=== PATIENT | female | born 1980 | race Two or more races ===

== ENCOUNTER 2019-02-26 21:45 | Emergency (ER) | payer SELFPAY ==
[~2019-02-26] VITALS: Ht 137.2 cm; Wt 58.2 kg
[2019-02-26 22:05] VITALS: Ht 137.2 cm; Wt 58.2 kg
[2019-02-26 22:26] LABS: BASOPHILS 0.4 % (0-2); EOSINOPHILS 2.9 % (0-7); LYMPHOCYTES 23.3 % (15-50); MCH 30.2 pg (26.0-34.0); MCHC 33.3 g/dL (31.0-37.0); MCV 90.5 fL (80.0-100.0); MEAN PLATELET VOLUME 9.7 fL (7.4-10.4); MONOCYTES 5.4 % (2-11); PLATELET COUNT 279 10x3/uL (130-400); RBC 3.98 10x6/uL (4.00-5.40); RDW 12.8 % (11.5-14.5); WBC 12.4 10x3/uL (4.8-10.8)
[2019-02-26 22:39] LABS: CALC OSMOLALITY 273 mosm/kg (275-300); CALCIUM 9.3 mg/dL (8.5-10.1); CARBON DIOXIDE 25.3 mmol/L (21.0-32.0); CHLORIDE - SERUM 104 mmol/L (98-107); CREATININE - SERUM 0.4 mg/dL (0.6-1.3); GLUCOSE 110 mg/dL (74-106); POTASSIUM - SERUM 3.9 mmol/L (3.5-5.1); SODIUM 138 mmol/L (136-145); UREA NITROGEN 5 mg/dL (7-18); eGFR NON AFRICAN AMERICAN > 90 mL/min (90-120)
[2019-02-26 23:03] LABS: ALBUMIN 3.2 g/dL (3.4-5.0); ALKALINE PHOSPHATASE 102 U/L (46-116); ALT (SGPT) 17 U/L (10-68); BILIRUBIN - TOTAL 0.16 mg/dL (0.2-1.3); HCG - QUANTITATIVE (MATERNAL) 15253 mIU/mL; PROTEIN - SERUM 7.7 g/dL (6.4-8.2)
[2019-02-26 23:27] LABS: COLOR TAN (YELLOW)
[2019-02-26 23:28] LABS: APPEARANCE CLEAR (CLEAR); BILIRUBIN NEGATIVE (NEGATIVE); GLUCOSE NEGATIVE (NEGATIVE); KETONE NEGATIVE (NEGATIVE); NITRITE NEGATIVE (NEGATIVE); PROTEIN TRACE mg/dL (NEGATIVE); SPECIFIC GRAVITY 1.015 (1.005-1.020); UROBILINOGEN NORMAL (NORMAL); WHITE CELLS - URINE RARE /hpf (NEGATIVE)
[2019-02-27 00:45] VITALS: BP 138/75
== END 2019-02-27 00:45 | disposition home or self-care (01) ==
LOC: D.ER 21:45
PROVIDERS: Emergency Medicine
DX: O46.92 Antepartum hemorrhage, unspecified, second trimester (principal); Z3A.18 18 weeks gestation of pregnancy

== ENCOUNTER 2019-07-15 09:26 | Inpatient (IN) | payer MEDICAID ==
[2019-07-15] VITALS (12 sets, daily range): BP systolic 98–144; BP diastolic 54–80; Ht 137.2 cm; Wt 70.8 kg
[~2019-07-15] VITALS: Ht 137.2 cm; Wt 70.8 kg
--- NOTE | ~2019-07-15 | OP ---
PATIENT NAME: LUIZ HOPE MEDICAL RECORD: [id number] :82 LOCATION:[id number] ADMISSION DATE:07/15/19 SURGEON: ERIKA THORNE DO DATE OF OPERATION: 07/15/2019 PREOPERATIVE DIAGNOSES: Gestational hypertension, previous section. POSTOPERATIVE DIAGNOSIS: Gestational hypertension, previous section. PRIMARY SURGEON: Erika Thorne DO ANESTHESIA: Spinal. PROCEDURE: Repeat low transverse section via Pfannenstiel incision. FINDINGS: Female infant, weight 7 pounds, delivered at 13:52. Apgars 9 and 9. Normal appearing uterus, bilateral fallopian tubes and bilateral ovaries. SPECIMENS: Placenta and cord. ESTIMATED BLOOD LOSS: 800 mL. IV FLUIDS: 1800 cc. URINE OUTPUT: 1000 cc clear urine. COMPLICATIONS: None. CONDITION: Stable. PROCEDURE: The risks, benefits, alternatives and indications of the procedure were discussed with the patient. She voiced understanding of the procedure and signed the consent. She was taken to the OR where spinal anesthesia was administered and found to be adequate. She was placed in the dorsal supine position with a leftward tilt. She was prepped and draped in normal sterile fashion. A Pfannenstiel skin incision was made with a scalpel and carried down to the underlying layer of the fascia with the Bovie. The fascia was incised at the midline and extended laterally. The inferior aspect of the fascial incision was grasped with Peewee clamps and the rectus muscle was dissected off sharply. Attention was then turned to the superior aspect of the fascial incision and the rectus muscle was dissected off in a similar fashion. The rectus muscle was in the midline down to the level of peritoneum. The peritoneum was identified and noted to be free of adherent bowel and entered bluntly. The peritoneum was further with gentle traction. The bladder blade was inserted and a bladder flap was created with Metzenbaum scissors. The uterus was incised in a transverse fashion lower uterine segment with the scalpel and the incision was extended with cephalad caudad traction. The infant's head was brought to the incision and nuchal cord times 1 was noted and nuchal cord was reduced over the head prior to delivery of the body. The delivered without difficulty. Mouth and nose were suctioned. Cord was clamped and cut and the infant was handed off to awaiting pediatric personnel. The placenta was manually removed. The uterus was exteriorized and a moist lap was used to assure complete removal of placental membranes. The hysterotomy was closed with 0 Vicryl in a running locked fashion. There were several areas of bleeding noted, which were ligated with 2-0 Monocryl and [id number] stitches. OPERATIVE REPORT [id number] LUIZ HOPE Uterus, tubes, and ovaries were otherwise noted to be normal. The posterior cul-de-sac was irrigated with warm sterile water and all blood clots and fluid were removed from the posterior cul-de-sac. Uterus, tubes, and ovaries were returned back to the abdominal cavity and a moist laparotomy sponge was used to assure complete removal of blood clots and fluid from the abdominal cavity. The hysterotomy was reinspected and noted to be hemostatic. The rectus muscle was closed with 2-0 Monocryl in a running fashion with good hemostasis. The fascial incision was closed with 0 Vicryl in a running fashion with good hemostasis. The subcutaneous fat was closed with 2-0 plain in a running fashion with good hemostasis and the skin was closed in a subcuticular fashion with 3-0 Monocryl and Dermabond, covering. All needle, lap, sponge, and instrument counts were correct times 2. The patient tolerated the procedure well and she was taken to the recovery room in stable condition. TRANSINT:[id number] Voice Confirmation ID: [id number] DOCUMENT ID: [id number] ERIKA THORNE DO CC: [id number] DICTATION DATE: 07/15/191450 RADIATION ONCOLOGY THERAPIST: 07/15/19 2316 ADM IN [place] [address] [place] [address]
[2019-07-15 10:24] LABS: CALC OSMOLALITY 267 mosm/kg (275-300); CALCIUM 8.7 mg/dL (8.5-10.1); CARBON DIOXIDE 21.7 mmol/L (21.0-32.0); CHLORIDE - SERUM 103 mmol/L (98-107); CREATININE - SERUM 0.5 mg/dL (0.6-1.3); GLUCOSE 100 mg/dL (74-106); POTASSIUM - SERUM 4.2 mmol/L (3.5-5.1); SODIUM 135 mmol/L (136-145); UREA NITROGEN 8 mg/dL (7-18); eGFR NON AFRICAN AMERICAN > 90 mL/min (90-120)
[2019-07-15 10:38] LABS: ALBUMIN 2.4 g/dL (3.4-5.0); ALKALINE PHOSPHATASE 212 U/L (30-120); ALT (SGPT) 23 U/L (10-68); BASOPHILS 0.4 % (0-2); BILIRUBIN - DIRECT 0.05 mg/dL (0.00-0.30); BILIRUBIN - INDIRECT 0.19 mg/dL (0.00-1.00); BILIRUBIN - TOTAL 0.24 mg/dL (0.2-1.3); EOSINOPHILS 1.2 % (0-7); HEMATOCRIT 34.6 % (36.0-48.0); HEMOGLOBIN 11.6 g/dL (12-16); IMMATURE GRANULOCYTES 5.9 % (0-5); MCH 29.5 pg (26.0-34.0); MCHC 33.5 g/dL (31.0-37.0); MEAN PLATELET VOLUME 10.3 fL (7.4-10.4); NEUTROPHILS 71.5 % (40-80); PLATELET COUNT 260 10x3/uL (130-400); PROTEIN - SERUM 6.7 g/dL (6.4-8.2); RBC 3.93 10x6/uL (4.00-5.40); RDW 13.6 % (11.5-14.5); URIC ACID 4.7 mg/dL (2.6-7.2); WBC 11.2 10x3/uL (4.8-10.8)
[2019-07-15 11:35] LABS: BILIRUBIN NEGATIVE (NEGATIVE); GLUCOSE NEGATIVE (NEGATIVE); KETONE NEGATIVE (NEGATIVE); NITRITE NEGATIVE (NEGATIVE); SPECIFIC GRAVITY 1.005 (1.005-1.020); UROBILINOGEN NORMAL (NORMAL)
[2019-07-15 11:37] LABS: BACTERIA MODERATE /hpf (NEGATIVE); EPITHELIAL CELLS 0-5 /hpf (0-5); RED CELLS - URINE OCC /hpf (0-5); WHITE CELLS - URINE RARE /hpf (NEGATIVE)
[2019-07-15] MEDS ORDERED: PRENAVITE1 TAB PO (11:49)
--- NOTE | 2019-07-15 15:45 | NUR ---
PT RESTING WITH EYES CLOSED, RESP EVEN AND UNLABORED. PT CONT TO DENY PAIN. FF, MORE MIDLINE IN LOCATION, U/1. SMALL RUBRA LOCHIA, NO CLOTS. PERIPAD CHANGED. PT DENIES NEEDS. SRUx2, CL IN REACH. WILL CONT TO MONITOR.
--- NOTE | 2019-07-15 15:45 | NUR ---
PT RECEIVED VIA BED TO ROOM 1278 FROM PACU. PT IS DROWSY BUT ALERTS TO VOICE, ORIENTED x3. PT DENIES PAIN. IV INFUSING ORDERED TO LEFT WRIST PIV. ABD DRESSING OVER LOW TRANSVERSE C/S INCISION IS C/D/I. REEDER CATH DRAINING CLEAR YELLOW URINE TO BEDSIDE DRAINAGE, APPROX 1000ML NOTED IN EREDER BAG. FF, MIDLINE TO LEFT PLACEMENT, U/U. DISCUSSED WITH DR THORNE AND STATES FUNDUS WAS POSITIONED TO LEFT IN SURGERY ALSO. WILL CONT TO MONITOR. SMALL RUBRA LOCHIA NOTED TO PERIPAD, NO CLOTS. ICE PACK TO ABD INCISION. SCD'S ON LE AND ON PUMP. INCENTIVE SPIROMETER GIVEN WITH INSTRUCTIONS, PT RETURN DEMONSTRATES x3 WITH GOOD EFFORT, GOOD COUGH. PT DENIES NAUSEA. ICE WATER GIVEN AND PT ENCOURAGED TO SIP SLOWLY AND REPORT ANY NAUSEA OR PAIN. UNDERSTANDING VERBALIZED. SRUx2, CL IN REACH. WILL CONT TO MONITOR.
--- NOTE | 2019-07-15 16:30 | NUR ---
THIS RN TO ROOM FOR PT CHECK. PT RESTING WITH EYES CLOSED, RESP EVEN AND UNLABORED. FF, REMAINS MORE MIDLINE, U/1. SMALL RUBRA LOCHIA, NO CLOTS. WARM BLANKET GIVEN PER PT REQUEST AND LIGHTS IN ROOM FURTHER DIMMED FOR REST. PT DENIES FURTHER NEEDS, STATES HER WILL BE BACK SHORTLY WITH OTHER CHILDREN. SRUx2, CL IN REACH. WILL CONT TO MONITOR.
--- NOTE | 2019-07-15 17:45 | NUR ---
THIS RN TO ROOM FOR PT CHECK. PT AWAKE, SITTING UP IN BED . PT REPORTS SOME MILD PAIN WITH , BUT STATES SHE DOES NOT WANT TO TAKE ANYTHING FOR PAIN YET AT THIS TIME. REEDER CATH CONT DRAINING CLEAR YELLOW URINE TO BAG. FF, ML, U/1. MODERATE RUBRA LOCHIA NOTED, NO CLOTS EXPRESSED WITH MASSAGE. PADS CHANGED AND PERICARE DONE. PT DENIES NEEDS. PT TO ROOM WITH OLDER CHILDREN AT THIS TIME. SRUx2, CL IN REACH. WILL CONT TO MONITOR.
--- NOTE | 2019-07-15 18:20 | NUR ---
PT SITTING UP, VISITING WITH FAMILY. DENIES NEES AT THIS TIME. SRUx2, CL IN REACH. WILL CONT TO MONITOR.
--- NOTE | 2019-07-15 19:48 | NUR ---
PT REC'D IN BED AT [facility]. STATES THAT PAIN TO INCISION IS A 5/10. DRESSING TO ABDOMEN CDI. FUNDUS FIRM AND U/2 AT THIS TIME. SMALL LOCHIA NOTED. PERICARE PRIVIDED AT THIS TIME. IV TO THE RT FOREARM PATENT WITH OXYTOCIN AT 125 ML/HE. ALL OTHER ASSESSEMTN PER FLOWSHEET. NO DISTRESS NOTED. Masoud SARGENT RN
--- NOTE | 2019-07-15 20:21 | NUR ---
PT MEDICATED WITH TORADOL 30 MG FOR PAIN OF 5/10. WILL CONTINUE TO MONITOR. Masoud SARGENT RN
--- NOTE | 2019-07-15 21:00 | NUR ---
PT STATES THAT PAIN LEVEL IS STILL A 5. PT ON PHONE AT THIS TIME. WILL CONTINUE TO MONITOR. Masoud SARGENT RN
--- NOTE | 2019-07-15 22:31 | NUR ---
PT HOLDING INFANT, DENIES NEEDS OR PAIN AT THIS TIME, PT STATES "I'M OK RIGHT NOW", FOB AT BEDSIDE
--- NOTE | 2019-07-16 00:30 | NUR ---
PT AT THIS TIME, INFORMED PT TO USE CALL LIGHT WHEN FINISHED AND I WILL COME BACK TO DO VS AND LUCIO CARE, PT VERBALIZES UNDERSTANDING
--- NOTE | 2019-07-16 02:26 | NUR ---
PT RESTING, HOLDING , PT REQUESTS INFANT BACK TO NSY, INFORMED PT THAT I WILL BE BACK SHORTLY TO DO VS AND LUCIO CARE, PT VERBALIZES UNDERSTANDING, TO NSY VIA OPEN CRIB CART PER THIS RN, FOB ASLEEP ON COUCH
--- NOTE | 2019-07-16 02:50 | NUR ---
DR THORNE ON UNIT, REPORT OF DECREASE OUTPUT, ORDERS TO DO A 500ML BOLUS OF NS, ORDERS READY BACK AND VERIFIED
[2019-07-16 03:25] VITALS: BP 133/67
--- NOTE | 2019-07-16 03:25 | NUR ---
PT AWAKE, VS OBTAINED, LUCIO CARE DONE WITH WET WARM WASH CLOTHS, LITE BLEEDING NOTED WITH NO CLOTS, WHITE CHUX AND LUCIO PAD CHANGED, ADM TORADOL AND MORPHINE SIVP PER MD ORDERS, SEE EMAR, ADM BOLUS PER MD ORDERS, SEE EMAR FOR DECREASED OUTPUT, FRESH ICE PACK TO ABD, FRESH H20 SERVED, SCD'S CONTINUE ON AND WORKING PROPERLY, PT DENIES FURTHER NEEDS, FOB ASLEEP ON COUCH
--- NOTE | 2019-07-16 04:30 | NUR ---
NS BOLUS FINISHED INFUSING
[2019-07-16 05:09] LABS: RAPID PLASMA REAGIN Non Reactive (Non Reactive)
--- NOTE | 2019-07-16 05:30 | NUR ---
REEDER CATH NOTED TO HAVE 300MLS MORE IN REEDER BAG, INFORMED PT THAT WE WILL CONTINUE TO MONITOR AT THIS TIME, PT VERBALIZES UNDERSTANDING, DENIES NEEDS, PT HOLDING AT THIS TIME
[2019-07-16 06:51] LABS: BASOPHILS 0.2 % (0-2); EOSINOPHILS 0.3 % (0-7); IMMATURE GRANULOCYTES 2.2 % (0-5); LYMPHOCYTES 11.9 % (15-50); MCH 29.5 pg (26.0-34.0); MCHC 33.5 g/dL (31.0-37.0); MCV 88.3 fL (80.0-100.0); MEAN PLATELET VOLUME 9.7 fL (7.4-10.4); MONOCYTES 4.6 % (2-11); NEUTROPHILS 80.8 % (40-80); RDW 13.9 % (11.5-14.5); WBC 12.7 10x3/uL (4.8-10.8)
[2019-07-16 07:10] LABS: HEMATOCRIT 27.2 % (36.0-48.0); HEMOGLOBIN 9.1 g/dL (12-16); PLATELET COUNT 203 10x3/uL (130-400); RBC 3.08 10x6/uL (4.00-5.40)
--- NOTE | 2019-07-16 07:28 | NUR ---
IV CONVERTED TO SALINE LOCK, FLUSHED WITH 10MLS OF NS WITH NO DIFFICULTY, PT DENIES NEEDS AT THIS TIME
[2019-07-16 07:47] VITALS: BP 128/64
--- NOTE | 2019-07-16 07:47 | NUR ---
SHIFT ASSESSMENT COMPLETED. VARINDER LANDRY DISCUSSED PLANS FOR AMBULATION, VOIDING AND SHOWER TODAY. VERBALIZED UNDERSTANDING. INFANT IN ARMS . SIDE RAILS UP X 2, CALL LIGHT IN REACH. TO CALL IF ANYTHING IS NEEDED. FOB JUST ARRIVED.
--- NOTE | 2019-07-16 08:45 | NUR ---
SHIFT ASSESSMENT COMPLETED. DENIES NEEDING ANYTHING AT THIS TIME. WOULD LIKE SALINE LOCK OUT. INFANT IN ARMS OF VISITOR. FRESH WATER AND SNACK PACK GIVEN. SIDE RAILS UP X 2, CALL LIGHT IN REACH.
--- NOTE | 2019-07-16 08:54 | NUR ---
SCHEDULED MOTRIN GIVEN.
--- NOTE | 2019-07-16 09:40 | NUR ---
UP TO BATHROOM TO VOID. RADHA WELL, VAGINAL BLEEDING NOTED WHILE WALKING TO BATHROOM. SMALL AMOUNT ON LUCIO-PAD THAT WAS LEFT ON BED. VOIDED, 150 ML URINE. CLEANED PT UP. DESIRES PAIN MEDICATION FOR 8/10 INCISIONAL PAIN. DESIRES TO AMBULATE IN ROOM. CLEAN LUCIO-PADS X 2 AND PER-PANTS ON. DENIES DIZZINESS, INSTRUCTED TO SIT DOWN IF DIZZY. IN NURSERY. NO CURRENT VISITORS.
--- NOTE | 2019-07-16 09:46 | NUR ---
DISCUSSED PAIN MANAGEMENT OPTIONS. PERCOCET 10 MG GIVEN FOR 8/10 INCISIONAL PAIN. INFORMED PT THAT IT MAY CAUSE DROWSINESS. IF FEELING DROWSY NEEDS TO STAY IN BED AND CALL FOR ASSISTANCE. VERBALIZED UNDERSTANDING.
--- NOTE | 2019-07-16 10:49 | NUR ---
FEELING DROWSY AT THIS TIME. LAYING IN BED, SIDE RAILS UP X 2, CALL LIGHT IN REACH. INSTRUCTED TO CALL IF ANYTHING IS NEEDED AND NOT TO GET UP WITHOUT HELP DUE TO MEDICATION. VERBALIZED UNDERSTANDING. IN NURSERY.
--- NOTE | 2019-07-16 12:33 | NUR ---
DR THORNE VISITED PT EARLIER, DROWSY BUT AROUSES EASILY. NO CURRENT VISITORS. INFANT IN NURSERY. REMINDED PT TO CALL FOR ASSISTANCE WHEN GETTING OOB.
[2019-07-16 12:38] VITALS: BP 135/67
--- NOTE | 2019-07-16 14:14 | NUR ---
LAYING IN BED. SAYS "A LITTLE PAIN". DENIES NEEDING ANYTHING FOR IT AT THIS TIME. DENIES NEEDING TO VOID. WAITING ON INFANT TO RETURN TO ROOM. SALINE LOCK REMOVED FROM LEFT ANTECUBITAL. SIDE RAILS UP X 2, CALL LIGHT IN REACH. TO CAHLL IF ANYTHING IS NEEDED.
--- NOTE | 2019-07-16 14:59 | NUR ---
LAYING IN BED . 08/11 INCISIONAL PAIN. SCHEDULED MOTRIN GIVEN. INSTRUCTED PT TO LET RN KNOW IF FURTHER MEDICATION IS NEEDED. PLAN 5 MG PERCOCET INSTEAD OF 10MG. SAYS SHE DID NOT LIKE HOW THE 10 MG MADE HER FEEL. ENCOURAGED PO HYDRATION AND WILL NEED TO GET UP TO VOID SOON. DENIES NEEDING TO GO NOW. PLANS TO TAKE SHOWER LATER THIS AFTERNOON. CALL LIGHT IN REACH.
--- NOTE | 2019-07-16 15:37 | NUR ---
UP TO BATHROOM TO VOID. VOIDED 900 ML PINK TINGED URINE. TOLERATED AMBULATING WITHOUT DIFFICULTY. DESIRES TO SIT ON COUCH AT THIS TIME. IN ARMS. NO ADDITIONAL REQUESTS.
--- NOTE | 2019-07-16 17:07 | NUR ---
SITTING UP ON COUCH HOLDING . ATE DINNER. SAYS HER INCISIONAL PAIN IS MUCH BETTER. NOW ABOUT A 4/10 DENIES NEEDING ANYTHING. TO CALL IF ANYTHING IS NEEDED.
[2019-07-16 18:09] VITALS: BP 124/65
--- NOTE | 2019-07-16 18:10 | NUR ---
SITTING ON COUCH HOLDING . VS OBTAINED. NO REQUESTS. UP AD MANOLO.
--- NOTE | 2019-07-16 19:45 | NUR ---
PT EVENTS TRAFFIC CONTROLLER LIGHT, SITTING UP ON COUCH HOLDING , C/O INC BURNING, ADM PERCOCET PO PER MD ORDERS, SEE EMAR, INFORMED PT THAT I WILL RETURN SHORTLY TO DO ASSESSMENT, PT VERBALIZES UNDERSTANDING, DENIES FURTHER NEEDS AT THIS TIME
--- NOTE | 2019-07-16 20:35 | NUR ---
PT SITTING UP ON COUCH INFANT, INFORMED PT THAT I WILL COME BACK TO DO ASSESSMENT WHEN SHE IS FINISHED, PT VERBALIZES UNDERSTANDING, DENIES NEEDS AT THIS TIME
[2019-07-16 21:22] VITALS: BP 127/65
--- NOTE | 2019-07-16 21:22 | NUR ---
ASSESSMENT PER FLOW SHEET, VS OBTAINED, SALINE LOCK IN RIGHT HAND INTACT WITH NO REDNESS OR EDEMA, FF, ML, U/2, LITE BLEEDING NOTED WITH NO CLOTS, BIKINI INC WITH DERMABOND CDI WITH NO DRAINAGE NOTED, PT REPORTS FLATUS, NO BM AND VOIDING WITH NO DIFFICULTY, ENC PT TO AMB, PT REPORTS THAT SHE IS GOING TO TAKE A SHOWER, FOB IN ROOM TO ASSIST HER WITH IT, TOWELS AND WASH CLOTHS PROVIDED, ENC PT TO BE SURE AND AMB IN [place] THIS EVENING SINCE SHE HAS NOT SO FAR, PT REPORTS AMB IN ROOM, ADM MOTRIN PER MD ORDERS, SEE EMAR, WITH FRESH H20, PT DENIES FURTHER NEEDS
--- NOTE | 2019-07-16 22:02 | NUR ---
PT AMB IN [place], GAIT STEADY, RATES PAIN 4/10, DENIES NEEDS, PT BACK TO ROOM
[2019-07-16 23:45] VITALS: BP 130/72
--- NOTE | 2019-07-16 23:45 | NUR ---
PT SITTING UP ON COUCH, FOB HOLDING INFANT, VS OBTAINED, PT DENIES NEEDS OR PAIN AT THIS TIME
--- NOTE | 2019-07-17 01:40 | NUR ---
PT AWAKE, PT SLIGHTLY TEARY EYED, PT STATES "I THINK IT WAS THAT PAIN MEDICINE THATS MAKING ME FEEL LIKE THIS", TALKED TO PT ABOUT HORMONES AND POST DEPRESSION, PT VERBALIZES UNDERSTANDING, FOB IN ROOM ALSO AT THIS TIME, PT INST TO USE CALL LIGHT FOR ANY ASSISTANCE OR NEED TO TALK
[2019-07-17 03:18] VITALS: BP 126/59
--- NOTE | 2019-07-17 03:18 | NUR ---
PT RESTING WITH EYES CLOSED, AROUSES TO SOFT VERBAL STIMULATION, VS OBTAINED, ADM MOTRIN PER MD ORDERS, SEE EMAR, PT DENIES FURTHER NEEDS
--- NOTE | 2019-07-17 05:00 | NUR ---
PT INTANT, DENIES NEEDS OR PAIN AT THIS TIME, FOB ASLEEP ON COUCH
[2019-07-17 06:55] LABS: BASOPHILS 0.3 % (0-2); EOSINOPHILS 1.8 % (0-7); HEMOGLOBIN 8.9 g/dL (12-16); LYMPHOCYTES 17.6 % (15-50); MCH 29.2 pg (26.0-34.0); MCV 88.5 fL (80.0-100.0); MEAN PLATELET VOLUME 10.3 fL (7.4-10.4); MONOCYTES 4.8 % (2-11); NEUTROPHILS 70.5 % (40-80); PLATELET COUNT 231 10x3/uL (130-400); RBC 3.05 10x6/uL (4.00-5.40); RDW 14.1 % (11.5-14.5); WBC 11.6 10x3/uL (4.8-10.8)
--- NOTE | 2019-07-17 07:00 | NUR ---
SHIFT REPORT TO NOE JIMENEZ RN
[2019-07-17 07:41] VITALS: BP 131/65
--- NOTE | 2019-07-17 11:36 | NUR ---
SITTING UP ON COUCH. SAYS SHE FEELS DROWSY. INFORMED PT THAT SHE ONLY RECEIVED MOTRIN WHICH SHOULD NOT CAUSE DROWSINESS AND THAT SHE MAY NEED TO TAKE A NAP. VERBALIZED UNDERSTANDING. PLACED IN CRIB, PT PLANS TO RETURN TO BED. LUNCH WILL BE DELIVERED SOON. DENIES PAIN AT THIS TIME. ENCOURAGED TO WALK IN [place] TO PROMOTE PASSING FLATUS. VERBALIZED UNDERSTANDING.
--- NOTE | 2019-07-17 11:50 | NUR ---
PATIENT SAYS SHE RECIEVED ONE SHOT IN CLINIC. ACCORDING TO CHART, THIS WAS THE TDAP. PATIENT DESIRES FLU VACCINATION BEFORE GOING HOME. TO NURSERY FOR TURKEY BONER ASSESSMENT.
[2019-07-17] MEDS ORDERED: TYLENOL W/CODEI1 TAB PO (11:57)
--- NOTE | 2019-07-17 14:34 | NUR ---
CURRENTLY . Tiara CORDERO LPN IN ROOM PROVIDING DC INSTRUCTIONS. NO REQUESTS AT PRESENT.
--- NOTE | 2019-07-17 16:02 | NUR ---
AMBULATING IN ROOM. DRESSED AND READY TO GO HOME. HAS BEEN DISCHARGED. UNSURE WHEN HER WILL BE HERE TO PICK HER UP. SCHEDULED MOTRIN GIVEN. REQUESTED FLU VACCINE WHICH WAS GIVEN IN RIGHT DELTOID WITHOUT DIFFICULY. HAS WRITTEN HUNGARIAN DC INSTRUCTIONS. WILL DC DEWAYNE.
--- NOTE | 2019-07-17 16:45 | NUR ---
DISCHARGE INSTRUCTIONS EXPLAINED TO PT, ALONG WITH COPIES PROVIDED. PRESCRIPTIONS GIVEN, AND APPT CARD, WITH D/C INSTRUCTIONS, AND EMERGENCY INSTRUCTIONS.
== END 2019-07-17 16:45 | disposition home or self-care (01) | DRG 788 ==
LOC: D.LDO 09:26 → D.LD 09:54
PROVIDERS: ADMIT Student in an Organized Health Care Education/Training Program; ATTEND Student in an Organized Health Care Education/Training Program
PROC: 10D00Z1 Extraction of Products of Conception, Low, Open Approach (ICD-10-PCS; principal; 2019-07-15 10:00)
DX: O13.4 Gestational [pregnancy-induced] hypertension without significant proteinuria, complicating childbirth (principal); Z3A.38 38 weeks gestation of pregnancy; Z37.0 Single live birth